=== PATIENT | male | born 1995 | race Caucasian/White ===

== ENCOUNTER 2024-07-18 13:18 | Emergency (ER) | payer OTHER, SELFPAY ==
[2024-07-18 13:21] VITALS: BP 120/80; PULSE 106; RESP 17; TEMP 36.9; O2SAT 99; BMI 27.3
--- NOTE | 2024-07-18 13:44 | EKG12_ITS ---
Test Reason : O Blood Pressure : */* mmHG Vent. Rate : 88 BPM Atrial Rate : 88 BPM P-R Int : 152 ms QRS Dur : 102 ms QT Int : 378 ms P-R-T Axes : 40 13 62 degrees QTcB Int : 457 ms Normal sinus rhythm with sinus arrhythmia Incomplete right bundle branch block Nonspecific T wave abnormality Abnormal ECG Confirmed by DANYEL DOWNS, NATAN ([id number]), news assignment editor ALEXIS BANUELOS ([id number]) on 07/19/2024 8:04:32 AM Referred By: Jah Patton Confirmed By: NATAN MONTAÑO MD
--- NOTE | 2024-07-18 13:46 | ED.RN ---
pt states to this nurse he isnt sure why he is here. declining to put gown on
--- NOTE | 2024-07-18 14:37 | EDS_ITS ---
HPI History of Present Illness Chief Complaint: Dizziness Narrative Narrative: Patient is a 28-year-old male with no known significant past medical history who presented to the emergency department with a chief complaint of not feeling well. Patient states that he had COVID approximately a week and a half ago and states that he does not know if he is try to get over this still or not. Patient states that he is from [place] and is over here for work. Patient denies any history of blood clots. Patient in triage note states that he is dizzy although when clarifying this he is not dizzy he is complaining of some lightheadedness. Patient states that he feels like he is having poor perfusion to his hands and his body as he states that my body gets cold. He states that he does not have any changes in color of his fingers or anything of this nature during these episodes. Patient states that he went to the gym earlier today did a full workout had no symptoms during the workout. He states that about an hour half afterwards he developed symptoms again therefore was concerned and came here for further evaluation management. He states that I do not know if I need antibiotics to get over the COVID or not PFSH [facility] Medical History no medical history Home Medications ?Medication ?Instructions ?Recorded ?Last Taken ?Type NK 07/18/24 Unknown History Allergy/AdvReac Type Severity Reaction Status Date / Time No Known Allergies Allergy Verified 07/18/24 13:25 Surgical History no surgical history Social History Smoking Status: Unknown if ever smoked ROS ROS ED ROS Narrative Constitutional: Complains of lightheadedness as noted above denies fevers, chills, headaches Eyes: Denies change in vision double vision blurry vision Cardiovascular: Denies chest pain or palpitations Respiratory: Denies coughing wheezing shortness of breath Abdomen: Denies abdominal pain nausea vomit diarrhea : Denies urinary symptoms Neurological: Denies numbness, weakness, tingling Musculoskeletal: Denies back pain Skin: Denies rashes or lesions EXAM Physical Exam Narrative Exam Narrative: General: Patient is lying in bed rest comfortably did not appear to be in acute distress Head: Atraumatic, normocephalic Eyes: PERRL bilaterally, EOMI bilaterally, no conjunctival injection noted Neck: Soft, supple, trachea midline Cardiovascular: Regular rate and rhythm no murmurs gallops rubs are noted Respiratory: Clear to auscultation bilaterally no rales rhonchi or wheezes noted Abdomen: Soft, nondistended, no tenderness to palpation Extremities: +5/5 strength noted in the bilateral upper and lower extremities, radial pulses +2/4 in the bilateral extremities, no pedal edema on exam Neurological: Patient following commands knew that he was at [facility] year is 2024. NIH of 0 GCS 15. Sensation grossly intact throughout his body bilaterally Skin: Warm, dry, intact no rashes lesions noted Const Vital Signs: 07/18/24 13:21 Temperature 98.4 F Temperature Source Temporal Pulse Rate 106 H Respiratory Rate 17 Blood Pressure 120/80 Blood Pressure Mean 93 Pulse Ox 99 Oxygen Delivery Method Room Air MDM MDM MDM Narrative Medical decision making narrative: Patient is a 28-year-old male who presented to the emergency department the chief complaint of lightheaded not feeling well he states that this been going on for few weeks now. On the differential diagnosis includes not limited to dehydration, cardiac arrhythmia. Once workup is obtained reviewed he will be reevaluated. Patient's EKG reviewed showed sinus rhythm with a rate of 88 beats per minutes with a normal QTc 457. NH interval 152. Patient ambulated well here in the emergency department. He is advised to stay hydrated and follow-up with his primary care physician back in [place]. He was encouraged to return with worsening symptoms or any concerns. He is agreeable with this plan all course concerns answered is discharged home in stable condition. Discharge Plan Triage Chief Complaint: Dizziness ED Provider: Jah Patton Dx/Rx/DC Orders Clinical Impression: Light-headed Prescriptions: No Action NK Primary Care Provider: Nii Bruce,Out of Referrals: Nii Bruce,Out of [Primary Care Provider] - Activity Restrictions/Additional Instructions: Your EKG here today did not show any acute findings. Ensure you are staying hydrated orally. When you get back to [place] you should establish with a physician. Return with worsening symptoms or concerns in the meantime. Print Language: Hungarian Disposition Disposition: Home, Self Care
[2024-07-18 14:45] VITALS: O2SAT 99
== END 2024-07-18 15:01 | disposition home or self-care (01) ==
PROVIDERS: Emergency Provider Emergency Medicine; Referring Provider Emergency Medicine; Visit Provider Emergency Medicine
DX: R42 Dizziness and giddiness (principal)
CPT/HCPCS: 93005; 99282